=== PATIENT | female | born 1975 | race Caucasian/White ===

== ENCOUNTER 2016-12-01 09:06 | Emergency (ER) | payer BC ==
[2016-12-01] MEDS ORDERED: METOCLOPRAMIDE 5 MG/ML 2 ML VIAL IVP STA (09:40)
[2016-12-01] MEDS ORDERED: SODIUM CHLORIDE 0.9% 1,000 ML IV STA (09:40)
[2016-12-01] MEDS ORDERED: ORPHENADRINE 30 MG/ML 2 ML VIAL IM STA (09:40)
--- NOTE | 2016-12-01 09:43 | ED ---
General Adult HPI - General Chief complaint: Headache Stated complaint: Head,Shoulder and Spine ache Time Seen by Provider: 12/01/16 09:34 Source: patient, RN notes reviewed Mode of arrival: ambulatory Limitations: no limitations - History of Present Illness Initial comments: 41-year-old female presents to the emergency department with a chief complaint of back pain neck pain and headache. Patient states that initially insemination very dull headache and she went to bed early. Patient states headache is gradually worsening over the past few days and has developed into some neck pain however the patient points to her upper back and does not point to her neck when she states neck pain she points to the upper thoracic spine and some back pain. Patient states she chronically suffers from back pain with history of herniated disc. Patient states that she does not normally get headaches of this. Patient states his upper back/neck pain seems to be new as well. Patient states any movement of her neck seems to cause her more discomfort in her upper back area. Patient states that her headache is just throbbing and it's a generalized headache. Patient denies nausea any changes in vision any numbness or tingling associated with this. Patient states that she is a smoker. Patient states she's never had any symptoms like this or she was concerned.Patient denies any recent fever, chills, shortness of breath, chest pain, abdominal pain, nausea vomiting, numbness or tingling, dysuria or hematuria, constipation or diarrhea, visual changes, or any other current symptoms. - Related Data Home Medications Medication Instructions Recorded Confirmed Ascorbic Acid [Vitamin C] 1,000 mg PO DAILY 12/01/16 12/01/16 Biotin 5 mg PO DAILY 12/01/16 12/01/16 Chromium Picolinate 400 mcg PO DAILY 12/01/16 12/01/16 Cyanocobalamin (Vitamin B-12) 1,000 mcg PO DAILY 12/01/16 12/01/16 [Vitamin B-12] Hydrocodone/Acetaminophen [[place] 1 tab PO QID PRN 12/01/16 12/01/16 10-325] Multivitamins, Thera [Multivitamin 1 tab PO DAILY 12/01/16 12/01/16 (formulary)] Hickman-3 Fatty Acids/Fish Oil [Fish 1 cap PO DAILY 12/01/16 12/01/16 Oil 1,000 mg Softgel] Pyridoxine HCl (Vitamin B6) 100 mg PO DAILY 12/01/16 12/01/16 [Vitamin B-6] Previous Rx's Medication Instructions Recorded Ibuprofen [Motrin] 600 mg PO Q6HR PRN #20 tab 12/01/16 Orphenadrine [Norflex] 100 mg PO Q12H #10 tablet.er 12/01/16 Allergies Allergy/AdvReac Type Severity Reaction Status Date / Time No Known Allergies Allergy Verified 12/01/16 10:12 Review of Systems ROS Statement: Those systems with pertinent positive or pertinent negative responses have been documented in the HPI. ROS Other: All systems not noted in ROS Statement are negative. Past Medical History Additional Past Medical History / Comment(s): back pain History of Any Multi-Drug Resistant Organisms: None Reported Past Surgical History: Section Past Psychological History: No Psychological Hx Reported Smoking Status: Current every day smoker Past Alcohol Use History: None Reported Past Drug Use History: None Reported General Exam - General Exam Comments Initial Comments: General: The patient is awake and alert, in no distress, and does not appear acutely ill. Eye: Pupils are equal, round and reactive to light, extra-ocular movements are intact; there is normal conjunctiva bilaterally. No signs of icterus. Ears, nose, mouth and throat: There are moist mucous membranes and no oral lesions. Neck: The neck is supple, there is no tenderness. Any range of motion neck causes the patient pain. Cardiovascular: There is a regular rate and rhythm. No murmur, rub or gallop is appreciated. Respiratory: Lungs are clear to auscultation, respirations are non-labored, breath sounds are equal. No wheezes, stridor, rales, or rhonchi. Gastrointestinal: Soft, non-distended, non-tender abdomen without masses or organomegaly noted. There is no rebound or guarding present. No CVA tenderness. Bowel sounds are unremarkable. Back: There is no tenderness to palpation in the midline. There is no obvious deformity. No rashes noted. Musculoskeletal: Normal ROM, no tenderness, There is no pedal edema. There is no calf tenderness or swelling. Sensation intact. Pulses equal bilaterally 2+. Neurological: CN II-XII intact, There are no obvious motor or sensory deficits. Coordination appears grossly intact. Speech is normal. Skin: Skin is warm and dry and no rashes or lesions are noted. Psychiatric: Cooperative, appropriate mood & affect, normal judgment. Limitations: no limitations Course Vital Signs 12/01/16 12/01/16 09:32 11:29 Temperature 98.0 F 98.3 F Pulse Rate 75 58 L Respiratory 18 18 Rate Blood Pressure 168/89 115/53 O2 Sat by Pulse 99 98 Oximetry Medical Decision Making - Medical Decision Making 41-year-old female presents to the emergency department with a chief complaint of headache and back pain. Patient claims to neck pain however she points to her upper thoracic spine when she says she has pain when she states it hurts in her upper thoracic spine not her neck. She has no point tenderness along the neck. She is feeling better with medications at this time. Patient has no white count there is no shift. Patient's head and C-spine is negative. At this time patient is much better. Further history does state that she went to the chiropractor about a week ago and then this started. This we'll start her on pain medication from muscle relaxers. We did discuss follow-up we discussed return parameters all her questions. She stated that she understood and she is planned. She will be discharged home. - Lab Data Result diagrams: 12/01/16 10:04 12/01/16 10:04 Lab Results 12/01/16 12/01/16 Range/Units 10:04 10:04 WBC 7.1 (3.8-10.6) k/uL RBC 5.25 (3.80-5.40) m/uL Hgb 15.9 (11.4-16.0) gm/dL Hct 46.1 H (34.0-46.0) % MCV 87.8 (80.0-100.0) fL MCH 30.4 (25.0-35.0) pg MCHC 34.6 (31.0-37.0) g/dL RDW 13.4 (11.5-15.5) % Plt Count 173 (150-450) k/uL Neutrophils % 53 % Lymphocytes % 38 % Monocytes % 4 % Eosinophils % 2 % Basophils % 1 % Neutrophils # 3.7 (1.3-7.7) k/uL Lymphocytes # 2.7 (1.0-4.8) k/uL Monocytes # 0.3 (0-1.0) k/uL Eosinophils # 0.1 (0-0.7) k/uL Basophils # 0.0 (0-0.2) k/uL Sodium 141 (137-145) mmol/L Potassium 4.3 (3.5-5.1) mmol/L Chloride 107 (98-107) mmol/L Carbon Dioxide 24 (22-30) mmol/L Anion Gap 10 mmol/L BUN 7 (7-17) mg/dL Creatinine 0.77 (0.52-1.04) mg/dL Est GFR (MDRD) Af Amer >60 (>60 ml/min/1.73 sqM) Est GFR (MDRD) Non-Af >60 (>60 ml/min/1.73 sqM) Glucose 89 (74-99) mg/dL Calcium 9.0 (8.4-10.2) mg/dL Total Bilirubin 0.3 (0.2-1.3) mg/dL AST 15 (14-36) U/L ALT 32 (9-52) U/L Alkaline Phosphatase 53 (38-126) U/L Total Protein 7.3 (6.3-8.2) g/dL Albumin 4.3 (3.5-5.0) g/dL - Radiology Data Radiology results: report reviewed, image reviewed Disposition Clinical Impression: Thoracic myofascial strain, Headache Disposition: HOME SELF-CARE Condition: Stable Instructions: Acute Headache (ED) Additional Instructions: Please use medication as discussed. Please follow up with family doctor if symptoms have not improved over the next two days. Please return to the emergency room if your symptoms increase or worsen or for any other concerns. Prescriptions: Ibuprofen [Motrin] 600 mg PO Q6HR PRN #20 tab PRN Reason: Pain Orphenadrine [Norflex] 100 mg PO Q12H #10 tablet.er Referrals: Sawyer Galicia MD [Primary Care Provider] - 1-2 days Time of Disposition: 12:18
[2016-12-01 10:19] LABS: Basophils % (A) 1 %; CH 29.2; CHCM 33.4; Eosinophils # (A) 0.1 k/uL (0-0.7); Eosinophils % (A) 2 %; HCT 46.1 % (34.0-46.0); HDW 2.43; HGB 15.9 gm/dL (11.4-16.0); Luc # (Auto) 0.18; Luc % (Auto) 3; Lymphocytes # (A) 2.7 k/uL (1.0-4.8); Lymphocytes % (A) 38 %; MCH 30.4 pg (25.0-35.0); MCHC 34.6 g/dL (31.0-37.0); MCV 87.8 fL (80.0-100.0); Monocytes # (A) 0.3 k/uL (0-1.0); Monocytes % (A) 4 %; Neutrophils # (A) 3.7 k/uL (1.3-7.7); Neutrophils % (A) 53 %; RBC 5.25 m/uL (3.80-5.40); RDW 13.4 % (11.5-15.5); WBC 7.1 k/uL (3.8-10.6); WBC (Perox) 6.86
[2016-12-01 10:29] LABS: ALT 32 U/L (9-52); AST 15 U/L (14-36); Alkaline Phosphatase 53 U/L (38-126); Anion Gap 10 mmol/L; Blood Urea Nitrogen 7 mg/dL (7-17); Carbon Dioxide 24 mmol/L (22-30); Chloride 107 mmol/L (98-107); Glucose 89 mg/dL (74-99); Non-African American GFR(MDRD) >60 (>60 ml/min/1.73 sqM); Potassium 4.3 mmol/L (3.5-5.1); Sodium 141 mmol/L (137-145); Total Bilirubin 0.3 mg/dL (0.2-1.3); Total Protein 7.3 g/dL (6.3-8.2)
--- NOTE | 2016-12-01 10:49 | CT ---
EXAMINATION TYPE: CT brain claryine wo con DATE OF EXAM: 12/01/2016 COMPARISON: Brain 10/03/2012 HISTORY: 41-year-old female with neck pain, ROJAS, no known injury CT DLP: 1860.6 mGycm Automated exposure control for dose reduction was used. Technique: Examination of the head was done in axial plane without intravenous contrast. Coronal and sagittal reconstructions performed. CT of the cervical spine was obtained in axial plane without intravenous injection of contrast mater ial. Coronal and sagittal reformatted images were obtained from the axial views for evaluation of f ractures, spinal alignment and canal. FINDINGS: Head: There is no evidence of acute intracranial hemorrhage, acute ischemic changes, mass, mass-effect, or extra-axial fluid collection. There is no effacement of cerebral sulci or basal subarachnoid cister ns. There is no hydrocephalus. There is no midline shift. [place]-white matter distinction is preserv ed. Enlarging, partially calcified superior scalp nodules measuring up to 2.3 cm now versus 1.8 cm, previ ously. A nodule in the right. Median posterior skull base measures 1.6 cm versus 1.2 cm, previously. Multiple sebaceous cysts are expected. Patient's gaze is divergent suggesting underlying strabismus. Paranasal sinuses and mastoid air cells are well pneumatized. Cervical spine: The alignment of the cervical spine is normal on coronal and reformatted images. There is no cranial vertebral abnormality. Fracture of the cervical spine is not seen. Assessment of the spinal canal fro m C4 to C5 and below is limited due to artifact from patient's shoulders. Scattered mild facet and un covertebral joint arthropathy is present. No high-grade foraminal compromise seen. Sagittal and coronal reformatted images confirm above findings. COMBINED IMPRESSION: 1. No acute intracranial abnormality seen. 2. No acute fracture or malalignment of the cervical spine. 3. Divergent gaze suggests underlying strabismus. Clinically correlate. 4. Enlarging partially calcified scalp nodules along the vertex and also right paramedian posterior s kull base level. These now measure up to 2.3 cm versus 1.8 cm, previously. Sebaceous cysts are suspec micah. Correlate with physical exam findings.
[2016-12-01] MEDS ORDERED: HYDROmorphone 1 MG/ML 1 ML SYRINGE IVP STA (10:58)
[2016-12-01 11:30] VITALS: TEMP 98.3
[2016-12-01] MEDS ORDERED: KETOROLAC 30 MG/ML 1 ML VIAL IVP STA (11:40)
[2016-12-01 12:27] VITALS: BP 117/56; PULSE 64; RESP 19
== END 2016-12-01 12:32 | disposition home or self-care (01) ==
LOC: EC 09:06
DX: S29.012A Strain of muscle and tendon of back wall of thorax, initial encounter (principal); R51 Headache; M54.2 Cervicalgia; F17.200 Nicotine dependence, unspecified, uncomplicated; Z79.899 Other long term (current) drug therapy; X58.XXXA Exposure to other specified factors, initial encounter
CPT/HCPCS: 99284; 96374; 96375 ×2; 96372; 36415; 80053; 85025; 72125; 70450; J2360; J2765; J1885; J1170

== ENCOUNTER → 2022-07-17 | Outpatient (CLI) | payer BC ==
--- NOTE | 2022-07-17 09:48 | XR ---
EXAMINATION TYPE: XR lumbosacral spine min 4V DATE OF EXAM: 07/17/2022 CLINICAL HISTORY: Ongoing low back pain going down left leg. TECHNIQUE: Frontal, lateral, and oblique images of the lumbar spine are obtained. COMPARISON: MRI lumbar spine 2014 FINDINGS: There are 5 lumbar type vertebral bodies identified. The lumbar spine shows slight grade 1 retrolisthesis L3 on L4. Vertebral body heights are within normal limits. Moderate disc space narr owing with vacuum disc phenomenon and mild to moderate anterior spurring L4-L5 and L5-S1 levels is pr esent. The oblique images appear within normal limits. The overlying soft tissue appears unremarkabl e. IMPRESSION: As above.
== END | disposition home or self-care (01) ==
LOC: RADXRMAIN 09:22
PROVIDERS: ATTEND Physical Medicine & Rehabilitation
DX: M51.27 Other intervertebral disc displacement, lumbosacral region (principal); M43.16 Spondylolisthesis, lumbar region; M51.36 Other intervertebral disc degeneration, lumbar region
CPT/HCPCS: 72110

== ENCOUNTER → 2023-04-10 | Outpatient (CLI) | payer OTHER ==
[2023-04-10 23:11] LABS: Basophils # (A) 0.03 X 10*3/uL (0.00-0.10); Basophils % (A) 0.5 %; Eosinophils % (A) 1.8 %; HCT 43.4 % (37.2-46.3); HGB 14.4 g/dL (12.0-15.0); Immature Grans, Automated 0 %; Lymphocytes # (A) 1.44 X 10*3/uL (0.90-5.00); Lymphocytes % (A) 26.3 %; MCHC 33.2 g/dL (32.0-37.0); MCV 87.3 FL (80.0-97.0); Mean Platelet Volume 11.9 FL (9.5-12.2); Monocytes # (A) 0.25 X 10*3/uL (0.20-1.00); Monocytes % (A) 4.6 %; NRBC Per 100 WBC 0 X 10*3/uL (0.00-0.01); Neutrophils # (A) 3.66 X 10*3/uL (1.80-7.70); Neutrophils % (A) 66.8 %; Platelet Count 203 X 10*3/uL (140-440); RBC 4.97 X 10*6/uL (4.10-5.20); RDW 12.1 % (11.5-14.5); WBC 5.48 X 10*3/uL (4.50-10.00)
[2023-04-10 23:42] LABS: Chol/HDL Ratio 3.88 Ratio; Phosphorus 3.7 mg/dL (2.4-5.1)
[2023-04-10 23:43] LABS: ALT 24 U/L (8-44); AST 26 U/L (13-35); Albumin 4.9 g/dL (3.8-4.9); Albumin/Globulin Ratio 1.96 Ratio (1.60-3.17); Alkaline Phosphatase 74 U/L (41-126); BUN/Creat Ratio 7.89 Ratio (12.00-20.00); Blood Urea Nitrogen 7.1 mg/dL (9.0-27.0); Calcium 9.8 mg/dL (8.7-10.3); Carbon Dioxide 26.5 mmol/L (21.6-31.8); Chloride 102 mmol/L (96-109); Globulin 2.5 g/dL (1.6-3.3); Glucose 90 mg/dL (70-110); LDL Cholesterol,Calculated 145.3 mg/dL (0.0-131.0); Potassium 4.3 mmol/L (3.5-5.5); Sodium 140 mmol/L (135-145); Total Bilirubin 0.3 mg/dL (0.3-1.2); Total Protein 7.4 g/dL (6.2-8.2)
== END | disposition home or self-care (01) ==
LOC: LABWHC1 10:25
PROVIDERS: ATTEND Internal Medicine
DX: Z00.01 Encounter for general adult medical examination with abnormal findings (principal); Z13.220 Encounter for screening for lipoid disorders; E55.9 Vitamin D deficiency, unspecified; R53.83 Other fatigue
CPT/HCPCS: 36415; 80053; 80061; 82306; 82607; 82746; 84100; 84443; 85025